=== PATIENT | female | born 1975 | race Caucasian/White ===

== ENCOUNTER 2016-12-10 21:26 | Emergency (ER) | payer OTHER ==
[2016-12-10 21:49] VITALS: BP 110/63; PULSE 89; TEMP 98; BMI 30.2
--- NOTE | 2016-12-10 22:37 | PDOC ---
[id number] <Cayla Lennon - Last Filed: 12/11/16 02:18> <Ashley Whitt - Last Filed: 12/14/16 22:32> <Lisa Multani - Last Filed: 12/15/16 16:44> - General Chief Complaint: Chest Pain Stated Complaint: CHEST PAIN Time Seen by Provider: 12/10/16 22:37 Past History <Cayla Lennon - Last Filed: 12/11/16 02:18> - Past Medical History Other medical history: migraines - Surgical History Cholecystectomy: Yes - Immunization History Immunization Up to Date: Yes - Psycho/Social/Smoking Cessation Hx Anxiety: No Suicidal Ideation: No Smoking Status: Yes Smoking History: Current every day smoker Years of Tobacco Use: 22 Have you smoked in the past 12 months: Yes Number of Cigarettes Smoked Daily: 20 Information on smoking cessation initiated: Yes 'Breaking Loose' booklet given: 12/10/16 Hx Alcohol Use: No Drug/Substance Use Hx: No Substance Use Type: Marijuana Hx Substance Use Treatment: No <Lizzeth Whittreen - Last Filed: 12/14/16 22:32> <Lisa Multani - Last Filed: 12/15/16 16:44> - Past Medical History Allergies/Adverse Reactions: Allergies Allergy/AdvReac Type Severity Reaction Status Date / Time Penicillins Allergy Hives Verified 12/10/16 21:47 Home Medications: Ambulatory Orders NK [No Known Home Medication] 12/10/16 Review of Systems - Review of Systems Comments:: 12/11/16 01:26 <Cayla Lennon - Last Filed: 12/11/16 02:18> - Review of Systems Constitutional: No: Symptoms Reported, See HPI, Chills, Diaphoresis, Fever, Loss of Appetite, Malaise, Night Sweats, Weakness, Weight Stable, Unintentional Wgt. Loss, Unexplained wgt Loss, Other HEENTM: No: Symptoms Reported, See HPI, Eye Pain, Blurred Vision, Tearing, Recent change in vision, Double Vision, Cataracts, Ear Pain, Ocular Prothesis, Ear Discharge, Nose Pain, Nose Congestion, Tinnitus, Nose Bleeding, Hearing Loss , Throat Pain, Throat Swelling, Mouth Pain, Dental Problems, Difficulty Swallowing, Mouth Swelling, Other Respiratory: Yes: Shortness of Breath Cardiac (ROS): Yes: Chest Pain ABD/GI: No: Symptoms Reported, See HPI, Abdominal Distended, Abd. Pain w/ defecation, Blood Streaked Bowels, Constipated, Diarrhea, Difficulty Swallowing , Nausea, Poor Appetite, Poor Fluid Intake, Rectal Bleeding, Vomiting, Indigestion, Abdominal cramping, Tarry Stools, Other : No: Symptoms Reported, See HPI, Burning, Dysuria, Discharge, Frequency, Flank Pain, Hematuria, Incontinence, Pain, Urgency, Testicular Mass, Testicular Swelling, Lesions, Testicular Pain, Other Musculoskeletal: No: Symptoms Reported, See HPI, Back Pain, Gout, Joint Pain, Joint Swelling, Muscle Pain, Muscle Weakness, Neck Pain, Joint Stiffness, Other Neurological: No: Symptoms reported, See HPI, Headache, Numbness, Paresthesia, Pre-Existing Deficit, Seizure, Tingling, Tremors, Weakness, Unsteady Gait, Ataxia, Dizziness, Other Endocrine: No: Symptoms Reported, See HPI, Excessive Sweating, Flushing, Intolerance to Cold, Intolerance to Heat, Increased Hunger, Increased Thirst, Increased Urine, Unexplained Weight Gain, Unexplained Weight Loss, Change in Weight, Other Hematologic/Lymphatic: No: Symptoms Reported, See HPI, Anemia, Blood Clots, Easy Bleeding, Easy Bruising, Bleeding Diathesis, Lymph Node Abnormalities, Swollen Glands, Other <Lisa Multani - Last Filed: 12/15/16 16:44> *Physical Exam - Vital Signs Last Vital Signs Temp Pulse Resp BP Pulse Ox 98 F 89 18 110/63 98 12/10/16 21:47 12/10/16 21:47 12/10/16 21:47 12/10/16 21:47 12/10/16 21:47 - Physical Exam Comments: 12/11/16 01:27 <Cayla Lennon - Last Filed: 12/11/16 02:18> - Vital Signs Last Vital Signs Temp Pulse Resp BP Pulse Ox 98 F 89 18 110/63 98 12/10/16 21:47 12/10/16 21:47 12/10/16 21:47 12/10/16 21:47 12/10/16 21:47 <Ashley Whitt - Last Filed: 12/14/16 22:32> - Vital Signs Last Vital Signs Temp Pulse Resp BP Pulse Ox 98 F 89 18 110/63 98 12/10/16 21:47 12/10/16 21:47 12/10/16 21:47 12/10/16 21:47 12/10/16 21:47 - Physical Exam General Appearance: Yes: Nourished, Appropriately Dressed HEENT: positive: EOMI, JULIANNA, Normal ENT Inspection, Normal Voice Neck: positive: Supple Respiratory/Chest: positive: Lungs Clear Cardiovascular: positive: Regular Rhythm, Regular Rate Gastrointestinal/Abdominal: positive: Normal Bowel Sounds, Flat, Soft Musculoskeletal: positive: Normal Inspection Extremity: positive: Normal Capillary Refill, Normal Inspection, Normal Range of Motion Integumentary: positive: Normal Color, Warm Neurologic: positive: Fully Oriented, Alert, Normal Response, Motor Strength 5/5 <Lisa Multani - Last Filed: 12/15/16 16:44> Heart Score/ECG Review - ECG Intrepretation Comment:: 12/11/16 02:12 ECG 23:45 Normal sinus at 65 bpm <Cayla Lennon - Last Filed: 12/11/16 02:18> ED Treatment Course - LABORATORY CBC & Chemistry Diagram: 12/10/16 23:30 12/10/16 23:30 - ADDITIONAL ORDERS Additional order review: Laboratory Results 12/10/16 23:00 Urine HCG, Qual Negative - RADIOLOGY Radiograph Interpretation: 12/11/16 02:07 Exam: CT pulmonary angiogram Images: [id number] Clinical indication: Rule out pulmonary embolism. Findings: No filling defects are seen in the main, central or proximal segmental pulmonary arteries. Subsegmental dependent atelectatic changes are noted bilaterally. No other infiltrates, nodules or masses are seen. There is no axillary, mediastinal or hilar adenopathy. The heart is within limits for size. There is no pericardial or pleural effusion. The trachea and central bronchi are patent. The thoracic aorta and proximal great vessels are mildly atherosclerotic. The visualized upper abdominal viscera appear unremarkable. The patient is status post cholecystectomy. A nonobstructing calculus is noted in the lower pole left kidney. Impression: No pulmonary embolism identified. No other acute abnormality seen in the chest or visualized upper abdomen. A THIS DOCUMENT HAS BEEN ELECTRONICALLY SIGNED Reddy Marie M.D. - Medications Given in the ED: ED Medications Discontinued Medications Generic Name Dose Route Start Last Admin Trade Name Freq PRN Reason Stop Dose Admin Aspirin 162 mg 12/10/16 22:47 12/10/16 23:48 Asa - PO 12/10/16 22:48 162 mg ONCE ONE Administration <Cayla Lennon - Last Filed: 12/11/16 02:18> - LABORATORY CBC & Chemistry Diagram: 12/10/16 23:30 12/10/16 23:30 <Ashley Whitt - Last Filed: 12/14/16 22:32> - LABORATORY CBC & Chemistry Diagram: 12/10/16 23:30 12/10/16 23:30 - ADDITIONAL ORDERS Additional order review: Laboratory Results 12/10/16 12/10/16 12/10/16 23:30 23:30 23:30 INR 1.04 D-Dimer Cancelled Sodium 140 Potassium 4.3 Chloride 104 Carbon Dioxide 28 Anion Gap 8 BUN 17 Creatinine 0.7 Creat Clearance w eGFR > 60 Random Glucose 91 Calcium 8.7 Magnesium 2.1 Total Bilirubin 0.4 D AST 20 ALT 19 Alkaline Phosphatase 67 Troponin I < 0.02 Total Protein 7.0 Albumin 3.5 Serum , Qual Negative Urine HCG, Qual 12/10/16 23:00 INR D-Dimer Sodium Potassium Chloride Carbon Dioxide Anion Gap BUN Creatinine Creat Clearance w eGFR Random Glucose Calcium Magnesium Total Bilirubin AST ALT Alkaline Phosphatase Troponin I Total Protein Albumin Serum , Qual Urine HCG, Qual Negative 12/10/16 23:30 RBC 4.51 MCV 88.0 MCHC 33.6 RDW 13.0 MPV 9.2 Neutrophils % 56.4 Lymphocytes % 35.1 Monocytes % 6.4 Eosinophils % 1.7 Basophils % 0.4 - RADIOLOGY Radiology Studies Ordered: Category Date Time Status CHEST CTA [CT] Stat CT Scan 12/11/16 00:57 Taken - Medications Given in the ED: ED Medications Discontinued Medications Generic Name Dose Route Start Last Admin Trade Name Freq PRN Reason Stop Dose Admin Aspirin 162 mg 12/10/16 22:47 12/10/16 23:48 Asa - PO 12/10/16 22:48 162 mg ONCE ONE Administration <Lisa Multani - Last Filed: 12/15/16 16:44> Medical Decision Making - Medical Decision Making 12/14/16 22:32 Pt was discharged and never signed out to al. <Ashley Whitt - Last Filed: 12/14/16 22:32> - Medical Decision Making 12/11/16 02:13 41-year-old female presented with pleuritic chest pain between her shoulder blades. SMOKES pack of tobacco since teenager. No family history of early cardiac demise -ekg did not reveal any ischemia/reviewed labs- essentially unremarkable -ct scan of chest negative for any PE,infiltrates,ptx imp atypical chest pain. recommend pt see welfare visitor for echo /cardiac monitoring 12/15/16 16:39 <Lisa Multani - Last Filed: 12/15/16 16:44> *DC/Admit/Observation/Transfer - Attestations Scribe Attestion: 12/11/16 01:27 <Cayla Lennon - Last Filed: 12/11/16 02:18> <Ashley Whitt - Last Filed: 12/14/16 22:32> <Lisa Multani - Last Filed: 12/15/16 16:44> Diagnosis at time of Disposition: Pleuritic chest pain - Discharge Dispostion Disposition: HOME Condition at time of disposition: Stable - Patient Instructions Printed Discharge Instructions: DI for Atypical Chest Pain Additional Instructions: please follow up with your regular physician return for any worsening symptoms
[2016-12-10] MEDS ORDERED: ASPIRIN 81 MG CHEWABLE TABLETS PO ONE (22:47)
[2016-12-10] MEDS ORDERED: ASPIRIN 81 MG CHEWABLE TABLETS ONE (23:45)
[2016-12-10 23:53] LABS: BASOPHIL 0.4 % (0-2.0); EOSINOPHIL 1.7 % (0-4.5); MCH 29.6 pg (25.7-33.7); MCHC 33.6 g/dl (32.0-36.0); MEAN PLT VOLUME 9.2 fl (7.5-11.1); NEUTROPHILS 56.4 % (42.8-82.8); PLATELET COUNT 212 K/MM3 (134-434)
[2016-12-11 00:16] LABS: ALBUMIN 3.5 g/dl (3.4-5.0); ANION GAP 8 (8-16); BILIRUBIN,TOTAL 0.4 mg/dL (0.2-1.0); CALCIUM 8.7 mg/dL (8.5-10.1); CO2 28 mmol/L (21-32); CREATININE 0.7 mg/dL (0.55-1.02); GLUCOSE,RANDOM 91 mg/dL (74-106); MAGNESIUM 2.1 mg/dL (1.8-2.4); SGPT/ALT 19 U/L (12-78)
[2016-12-11 00:19] LABS: ALK PHOS 67 U/L (45-117); TROPONIN I < 0.02 ng/ml (0.00-0.05)
[2016-12-11 00:21] LABS: SGOT/AST 20 U/L (15-37)
[2016-12-11 00:23] LABS: INR 1.04 (0.82-1.09); PROTHROMBIN TIME (PATIENT) 11.4 SEC (9.98-11.88)
--- NOTE | 2016-12-11 02:14 | PDOC ---
History of Present Illness - General History Source: Patient Exam Limitations: No Limitations - History of Present Illness Initial Comments: 12/11/16 02:15 The patient is a 41 year old female with past medical history of migraines and asthma, pack a day cigarette smoker, who presents to the ED with complaints of back pain which began this morning. She describes the pain as a stabbing pain, that a radiates across her back, between her shoulder blades. It is worsened with deep breaths and is accompanied with a cough. She reports yesterday having a strange pain down her right arm as well. She denies any recent illness, fevers , chills. She denies nausea, vomiting, diarrhea. She denies shortness of breath. Surgical history: cholecystectomy, neck fusion Allergies: Penicillin PMD: Crowder <Cayla Lennon - Last Filed: 12/11/16 02:17> <Lisa Multani - Last Filed: 12/11/16 02:27> - General Chief Complaint: Chest Pain Stated Complaint: CHEST PAIN Time Seen by Provider: 12/10/16 22:37 Past History <Cayla Lennon - Last Filed: 12/11/16 02:17> - Past Medical History Other medical history: migraines - Surgical History Cholecystectomy: Yes - Immunization History Immunization Up to Date: Yes - Psycho/Social/Smoking Cessation Hx Anxiety: No Suicidal Ideation: No Smoking Status: Yes Smoking History: Current every day smoker Years of Tobacco Use: 22 Have you smoked in the past 12 months: Yes Number of Cigarettes Smoked Daily: 20 Information on smoking cessation initiated: Yes 'Breaking Loose' booklet given: 12/10/16 Hx Alcohol Use: No Drug/Substance Use Hx: No Substance Use Type: Marijuana Hx Substance Use Treatment: No <Lisa Multani - Last Filed: 12/11/16 02:27> - Past Medical History Allergies/Adverse Reactions: Allergies Allergy/AdvReac Type Severity Reaction Status Date / Time Penicillins Allergy Hives Verified 12/10/16 21:47 Home Medications: Ambulatory Orders NK [No Known Home Medication] 12/10/16 Review of Systems - Review of Systems Able to Perform ROS?: Yes Comments:: 12/11/16 02:15 CONSTITUTIONAL: Absent: fever, chills, diaphoresis, generalized weakness, malaise, loss of appetite HEENT: Absent: rhinorrhea, nasal congestion, throat pain, throat swelling, difficulty swallowing, mouth swelling, ear pain, eye pain, visual Changes CARDIOVASCULAR: Absent: chest pain, syncope, palpitations, irregular heart rate, lightheadedness , peripheral edema RESPIRATORY: Absent: cough, shortness of breath, dyspnea with exertion, orthopnea, wheezing, stridor, hemoptysis GASTROINTESTINAL: Absent: abdominal pain, abdominal distension, nausea, vomiting, diarrhea, constipation, melena, hematochezia GENITOURINARY: Absent: dysuria, frequency, urgency, hesitancy, hematuria, flank pain, genital pain MUSCULOSKELETAL: Present: back pain, right arm pain SKIN: Absent: rash, itching, pallor HEMATOLOGIC/IMMUNOLOGIC: Absent: easy bleeding, easy bruising, lymphadenopathy, frequent infections ENDOCRINE: Absent: unexplained weight gain, unexplained weight loss, heat intolerance, cold intolerance NEUROLOGIC: Absent: headache, focal weakness or paresthesias, dizziness, unsteady gait, seizure, mental status changes, bladder or bowel incontinence PSYCHIATRIC: Absent: anxiety, depression, suicidal or homicidal ideation, hallucinations. All Other Systems: Reviewed and Negative <Cayla Lennon - Last Filed: 12/11/16 02:17> *Physical Exam - Vital Signs Last Vital Signs Temp Pulse Resp BP Pulse Ox 98 F 89 18 110/63 98 12/10/16 21:47 12/10/16 21:47 12/10/16 21:47 12/10/16 21:47 12/10/16 21:47 - Physical Exam Comments: 12/11/16 02:16 GENERAL: Well developed, well nourished. Awake and alert. No acute distress. HEENT: Normocephalic, atraumatic. PERRLA, EOMI. No conjunctival pallor. Sclera are non- icteric. Moist mucous membranes. Oropharynx is clear. NECK: Supple. Full ROM. No JVD. Carotid pulses 2+ and symmetric, without bruits. No thyromegaly. No lymphadenopathy. CARDIOVASCULAR: Regular rate and rhythm. No murmurs, rubs, or gallops. Distal pulses are 2+ and symmetric. PULMONARY: No evidence of respiratory distress. Lungs clear to auscultation bilaterally. No wheezing, rales or rhonchi. ABDOMINAL: Soft. Non-tender. Non-distended. No rebound or guarding. No organomegaly. Normoactive bowel sounds. MUSCULOSKELETAL Normal range of motion at all joints. No bony deformities or tenderness. No CVA tenderness. EXTREMITIES: No cyanosis. No clubbing. No edema. No calf tenderness. SKIN: Warm and dry. Normal capillary refill. No rashes. No jaundice. NEUROLOGICAL: Alert, awake, appropriate. Cranial nerves 2-12 intact. No deficits to light touch and temperature in face, upper extremities and lower extremities. No motor deficits in the in face, upper extremities and lower extremities. Normoreflexic in the upper and lower extremities. Normal speech. Toes are down-going bilaterally. Gait is normal without ataxia. PSYCHIATRIC: Cooperative. Good eye contact. Appropriate mood and affect. <Cayla Lennon - Last Filed: 12/11/16 02:17> - Vital Signs Last Vital Signs Temp Pulse Resp BP Pulse Ox 98 F 89 18 110/63 98 12/10/16 21:47 12/10/16 21:47 12/10/16 21:47 12/10/16 21:47 12/10/16 21:47 <Lisa Multani - Last Filed: 12/11/16 02:27> Heart Score/ECG Review - ECG Intrepretation Comment:: 12/11/16 02:17 ECG 23:45 Normal sinus at 65 bpm <Cayla Lennon - Last Filed: 12/11/16 02:17> ED Treatment Course - LABORATORY CBC & Chemistry Diagram: 12/10/16 23:30 12/10/16 23:30 - ADDITIONAL ORDERS Additional order review: Laboratory Results 12/10/16 12/10/16 12/10/16 23:30 23:30 23:30 INR 1.04 D-Dimer Cancelled Sodium 140 Potassium 4.3 Chloride 104 Carbon Dioxide 28 Anion Gap 8 BUN 17 Creatinine 0.7 Creat Clearance w eGFR > 60 Random Glucose 91 Calcium 8.7 Magnesium 2.1 Total Bilirubin 0.4 D AST 20 ALT 19 Alkaline Phosphatase 67 Troponin I < 0.02 Total Protein 7.0 Albumin 3.5 Serum , Qual Negative Urine HCG, Qual 12/10/16 23:00 INR D-Dimer Sodium Potassium Chloride Carbon Dioxide Anion Gap BUN Creatinine Creat Clearance w eGFR Random Glucose Calcium Magnesium Total Bilirubin AST ALT Alkaline Phosphatase Troponin I Total Protein Albumin Serum , Qual Urine HCG, Qual Negative 12/10/16 23:30 RBC 4.51 MCV 88.0 MCHC 33.6 RDW 13.0 MPV 9.2 Neutrophils % 56.4 Lymphocytes % 35.1 Monocytes % 6.4 Eosinophils % 1.7 Basophils % 0.4 - RADIOLOGY Radiograph Interpretation: 12/11/16 02:16 Exam: CT pulmonary angiogram Images: [id number] Clinical indication: Rule out pulmonary embolism. Findings: No filling defects are seen in the main, central or proximal segmental pulmonary arteries. Subsegmental dependent atelectatic changes are noted bilaterally. No other infiltrates, nodules or masses are seen. There is no axillary, mediastinal or hilar adenopathy. The heart is within limits for size. There is no pericardial or pleural effusion. The trachea and central bronchi are patent. The thoracic aorta and proximal great vessels are mildly atherosclerotic. The visualized upper abdominal viscera appear unremarkable. The patient is status post cholecystectomy. A nonobstructing calculus is noted in the lower pole left kidney. Impression: No pulmonary embolism identified. No other acute abnormality seen in the chest or visualized upper abdomen. A THIS DOCUMENT HAS BEEN ELECTRONICALLY SIGNED Reddy Marie M.D. - Medications Given in the ED: ED Medications Discontinued Medications Generic Name Dose Route Start Last Admin Trade Name Freq PRN Reason Stop Dose Admin Aspirin 162 mg 12/10/16 22:47 12/10/16 23:48 Asa - PO 12/10/16 22:48 162 mg ONCE ONE Administration <Cayla Lennon - Last Filed: 12/11/16 02:17> - LABORATORY CBC & Chemistry Diagram: 12/10/16 23:30 12/10/16 23:30 - ADDITIONAL ORDERS Additional order review: Laboratory Results 12/10/16 12/10/16 12/10/16 23:30 23:30 23:30 INR 1.04 D-Dimer Cancelled Sodium 140 Potassium 4.3 Chloride 104 Carbon Dioxide 28 Anion Gap 8 BUN 17 Creatinine 0.7 Creat Clearance w eGFR > 60 Random Glucose 91 Calcium 8.7 Magnesium 2.1 Total Bilirubin 0.4 D AST 20 ALT 19 Alkaline Phosphatase 67 Troponin I < 0.02 Total Protein 7.0 Albumin 3.5 Serum , Qual Negative Urine HCG, Qual 12/10/16 23:00 INR D-Dimer Sodium Potassium Chloride Carbon Dioxide Anion Gap BUN Creatinine Creat Clearance w eGFR Random Glucose Calcium Magnesium Total Bilirubin AST ALT Alkaline Phosphatase Troponin I Total Protein Albumin Serum , Qual Urine HCG, Qual Negative 12/10/16 23:30 RBC 4.51 MCV 88.0 MCHC 33.6 RDW 13.0 MPV 9.2 Neutrophils % 56.4 Lymphocytes % 35.1 Monocytes % 6.4 Eosinophils % 1.7 Basophils % 0.4 - RADIOLOGY Radiology Studies Ordered: Category Date Time Status CHEST CTA [CT] Stat CT Scan 12/11/16 00:57 Taken - Medications Given in the ED: ED Medications Discontinued Medications Generic Name Dose Route Start Last Admin Trade Name Kevin PRN Reason Stop Dose Admin Aspirin 162 mg 12/10/16 22:47 12/10/16 23:48 Asa - PO 12/10/16 22:48 162 mg ONCE ONE Administration <Lisa Multani - Last Filed: 12/11/16 02:27> Medical Decision Making - Medical Decision Making 12/11/16 02:21 41-year-old female presents because of pain between her shoulder blades when she breathes. Had this for one day. Is not associated with any nausea, vomiting, fever, chills, cough or shortness of breath -She does have a cough. However, she does state she has a chronic cough Social history she's got a 20 year pack history of tobacco use EKG is normal sinus rhythm at 65 beats per minutes. Compared to a prior EKG in 03/23/2015. There are no significant changes. PT didn't have fever Imaging study. CT of chest was negative for any pulmonary embolus, infiltrate, masses or nodules, thoracic dissection, or unusual adenopathy imp pleuritic chest pain/ MUSCULOSKELETAL strain <Lisa Multani - Last Filed: 12/11/16 02:27> *DC/Admit/Observation/Transfer - Attestations Scribe Attestion: 12/11/16 02:18 Documentation prepared by Cayla Lennon, acting as medical/surgery registered nurse for Lisa Multani MD/. <Cayla Lennon - Last Filed: 12/11/16 02:17> <Lisa Multani - Last Filed: 12/11/16 02:27> Diagnosis at time of Disposition: Pleurodynia - Discharge Dispostion Disposition: HOME Condition at time of disposition: Stable - Patient Instructions Printed Discharge Instructions: DI for Atypical Chest Pain Additional Instructions: please follow up with your regular physician return for any worsening symptoms
[2016-12-11] MEDS ORDERED: KETOROLAC TROMETHAMINE 30 MG/1 ML VIAL IVPUSH ONE (02:20)
[2016-12-11] MEDS ORDERED: KETOROLAC TROMETHAMINE 30 MG/1 ML VIAL ONE (02:26)
--- NOTE | 2016-12-11 10:31 | EKG ---
Test Reason : Blood Pressure : / mmHG Vent. Rate : 065 BPM Atrial Rate : 065 BPM P-R Int : 148 ms QRS Dur : 084 ms QT Int : 422 ms P-R-T Axes : 029 042 035 degrees QTc Int : 438 ms NORMAL SINUS RHYTHM WITH SINUS ARRHYTHMIA NORMAL ECG WHEN COMPARED WITH ECG OF 23-MAR-2015 12:53, NONSPECIFIC T WAVE ABNORMALITY NOW EVIDENT IN ANTERIOR LEADS Confirmed by DON CAN, ANI ([id number]) on 12/11/2016 10:31:15 AM Referred By: Confirmed By:ANI OCHOA MD
== END 2016-12-11 02:41 | disposition home or self-care (01) ==
LOC: JER 21:26
PROC: 3E0333Z Introduction of Anti-inflammatory into Peripheral Vein, Percutaneous Approach (ICD-10-PCS; principal; 2016-12-10)
DX: R07.81 Pleurodynia (principal); J45.909 Unspecified asthma, uncomplicated; F17.210 Nicotine dependence, cigarettes, uncomplicated
CPT/HCPCS: 36415; 71275-TC; 80053; 82550; 83735; 84484; 84703; 85025; 85379; 85610; 93005; 93010; 96374; 99281-25; 99283-25

== ENCOUNTER 2019-04-20 21:33 | Emergency (ER) | payer OTHER | END 2019-04-21 01:10 | disposition home or self-care (01) | LOC: JER 04-21 01:10 ==

== ENCOUNTER 2021-04-25 13:58 | Emergency (ER) | payer OTHER ==
[2021-04-25 14:09] VITALS: BP 102/70; PULSE 81; TEMP 98.7; BMI 31.4
[2021-04-25] MEDS ORDERED: KETOROLAC TROMETHAMINE 30 MG/1 ML VIAL IM ONE (14:36)
[2021-04-25] MEDS ORDERED: KETOROLAC TROMETHAMINE 30 MG/1 ML VIAL ONE (14:43)
== END 2021-04-25 15:40 | disposition home or self-care (01) ==
LOC: JERFT 13:58
PROC: 3E0233Z Introduction of Anti-inflammatory into Muscle, Percutaneous Approach (ICD-10-PCS; principal; 2021-04-25)
DX: M25.561 Pain in right knee (principal)
CPT/HCPCS: 73562-TC-RT-FY; 99284-25

== ENCOUNTER 2023-04-01 13:28 | Emergency (ER) | payer OTHER ==
[2023-04-01 15:43] VITALS: BP 101/57; PULSE 78; RESP 18; TEMP 98.5; BMI 27.6
[2023-04-01 15:44] LABS: HEMATOCRIT 39.6 % (32.4-45.2); MCH 32.2 pg (25.7-33.7); MCHC 32.9 g/dl (32.0-36.0); PLATELET COUNT 217.2 10^3/uL (134-434); RBC 4.04 10^6/uL (3.60-5.2); RDW 14.8 % (11.6-15.6); WHITE BLOOD COUNT 11.4 10^3/uL (4.0-10.8)
[2023-04-01] MEDS ORDERED: ACETAMINOPHEN 500 MG TABLET (FP) PO ONE (15:51)
[2023-04-01 16:00] LABS: PLATELET ESTIMATE ADEQUATE
[2023-04-01 16:02] LABS: ALBUMIN 3.7 g/dl (3.4-5.0); BILIRUBIN,TOTAL 0.3 mg/dl (0.2-1); CALCIUM 8.9 mg/dl (8.5-10); CREATININE 0.7 mg/dl (0.55-1.3); POTASSIUM 4.1 mmol/L (3.5-5.1); TOT PROT 6.6 g/dl (6.4-8.2)
[2023-04-01] MEDS ORDERED: ACETAMINOPHEN 500 MG TABLET (FP) ONE (16:07)
[2023-04-01 16:28] LABS: ERYTHROCYTE SEDIMENTATION RATE 13 mm/hr (0-20)
[2023-04-01] MEDS ORDERED: CLINDAMYCIN HCL 150 MG CAPSULE (FP) PO ONE (17:25)
[2023-04-01] MEDS ORDERED: CLINDAMYCIN HCL 150 MG CAPSULE (FP) ONE (17:31)
== END 2023-04-01 17:47 | disposition home or self-care (01) ==
LOC: FER 13:28
DX: M25.572 Pain in left ankle and joints of left foot (principal); R22.42 Localized swelling, mass and lump, left lower limb; L03.116 Cellulitis of left lower limb
CPT/HCPCS: 36415; 73610-TC-LT-FY; 80053; 83735; 85027; 85651; 86140; 99284-25

== ENCOUNTER 2023-10-27 12:32 | Emergency (ER) | payer OTHER ==
[2023-10-27 12:43] VITALS: RESP 17; BMI 26.4
[2023-10-27] MEDS ORDERED: LACTATED RINGERS SOLUTION 1000 ML INFUS.BAG IV ONE (14:03)
[2023-10-27] MEDS ORDERED: ONDANSETRON 4 MG/2 ML VIAL IVPUSH ONE (14:03)
[2023-10-27] MEDS ORDERED: ACETAMINOPHEN 1000 MG/100 ML BAG IVPB ONE (14:03)
[2023-10-27] MEDS ORDERED: ACETAMINOPHEN INJECTION 100 ML IVPB ONE (14:34)
[2023-10-27] MEDS ORDERED: ONDANSETRON 4 MG/2 ML VIAL ONE (14:34)
[2023-10-27 14:57] LABS: BASO % 0.7 % (0-2.0); EOS % 1.4 % (0-4.5); HEMATOCRIT 39.5 % (32.4-45.2); HEMOGLOBIN 13.5 GM/dL (10.7-15.3); LYMPH % 36.8 % (8-40); MCHC 34.2 g/dl (32.0-36.0); MEAN CELL VOLUME 93.5 fl (80-96); MEAN PLT VOLUME 8.3 fl (7.5-11.1); NEUT % 54.1 % (42.8-82.8); PLATELET COUNT 246 10^3/uL (134-434); RBC 4.22 M/mm3 (3.60-5.2); RDW 13.8 % (11.6-15.6); WHITE BLOOD COUNT 8.3 K/mm3 (4.0-10.0)
[2023-10-27 15:07] LABS: POTASSIUM 3.3 mmol/L (3.5-5.1)
[2023-10-27 15:12] LABS: CALCIUM 8.9 mg/dL (8.5-10.1)
[2023-10-27 15:13] LABS: ALBUMIN 3.5 g/dl (3.4-5.0); BLOOD UREA NITROGEN 13.9 mg/dL (7-18)
[2023-10-27 15:16] LABS: CREATININE 0.6 mg/dL (0.55-1.3)
[2023-10-27 15:17] LABS: BILIRUBIN,TOTAL 0.6 mg/dL (0.2-1)
[2023-10-27 15:17] LABS: URINE APPEARANCE Error; URINE BILIRUBIN NEGATIVE (NEGATIVE); URINE COLOR YELLOW; URINE GLUCOSE (UA) NEGATIVE (NEGATIVE); URINE KETONE NEGATIVE (NEGATIVE); URINE LEUK ESTERASE NEGATIVE (NEGATIVE); URINE NITRITE NEGATIVE (NEGATIVE); URINE PROTEIN NEGATIVE (NEGATIVE); URINE UROBILINOGEN 0.2 mg/dL (0.2-1.0)
[2023-10-27 15:59] LABS: CHLORIDE 106 mmol/L (98-107); SODIUM 138 mmol/L (136-145)
[2023-10-27 16:00] LABS: CALCIUM 8.5 mg/dL (8.5-10.1)
[2023-10-27 16:01] LABS: CO2 26 mmol/L (21-32); GLUCOSE,RANDOM 95 mg/dL (74-106); MAGNESIUM 2.2 mg/dL (1.8-2.4)
[2023-10-27 16:04] LABS: ANION GAP 5 mmol/L (4-13); CREATININE 0.7 mg/dL (0.55-1.3); POTASSIUM 2.9 mmol/L (3.5-5.1)
[2023-10-27] MEDS ORDERED: KCL 10 MEQ IVPB 10 MEQ/100 ML INFUS.BAG IVPB SCH (16:15)
[2023-10-27] MEDS ORDERED: POTASSIUM CHLORIDE TABS 20 MEQ TABLET.ER (FP) PO ONE ×2 (16:42→16:45)
[2023-10-27] MEDS ORDERED: KCL 10 MEQ IVPB 10 MEQ/100 ML INFUS.BAG IVPB ONE ×2 (18:07→19:20)
[2023-10-27 19:03] VITALS: BP 117/65; PULSE 76; TEMP 97.8
== END 2023-10-27 20:01 | disposition home or self-care (01) ==
LOC: JER 12:32
PROC: 3E033GC Introduction of Other Therapeutic Substance into Peripheral Vein, Percutaneous Approach (ICD-10-PCS; principal; 2023-10-27)
PROC: 3E033GC Introduction of Other Therapeutic Substance into Peripheral Vein, Percutaneous Approach (ICD-10-PCS; 2023-10-27)
PROC: 3E033GC Introduction of Other Therapeutic Substance into Peripheral Vein, Percutaneous Approach (ICD-10-PCS; 2023-10-27)
PROC: 3E033NZ Introduction of Analgesics, Hypnotics, Sedatives into Peripheral Vein, Percutaneous Approach (ICD-10-PCS; 2023-10-27)
PROC: 3E033GC Introduction of Other Therapeutic Substance into Peripheral Vein, Percutaneous Approach (ICD-10-PCS; 2023-10-27)
DX: R10.31 Right lower quadrant pain (principal); R11.0 Nausea
CPT/HCPCS: 36415; 74177-TC; 76830-TC; 80048; 80053; 81003; 83735; 84703; 85025; 87086; 99285-25; Q9967